=== PATIENT | female | born 2000 | race Caucasian/White ===

== ENCOUNTER → 2022-01-20 13:47 | Outpatient (BNVA) | payer SELFPAY | PROVIDERS: PCP Internal Medicine; Visit Provider Psychiatry & Neurology Neurology | DX: G40.909 Epilepsy, unspecified, not intractable, without status epilepticus (principal); F39 Unspecified mood [affective] disorder | CPT/HCPCS: 99212 ==

== ENCOUNTER → 2023-01-19 12:40 | Outpatient (BNVA) | payer SELFPAY | PROVIDERS: PCP Internal Medicine; Visit Provider Nurse Practitioner Family | DX: G40.909 Epilepsy, unspecified, not intractable, without status epilepticus (principal); F39 Unspecified mood [affective] disorder | CPT/HCPCS: 99212 ==

== ENCOUNTER 2024-05-21 14:33 | Outpatient (AMB) | payer SELFPAY ==
--- NOTE | 2024-05-21 14:33 | MHC.OFFVIS ---
Intake Visit Reasons: 1 yr f/u appt - CONF Intake Note: Pt presents for 4 month follow up for epilepsy via telehealth. [facility] [employer] Required: No Allergies No Known Allergies Allergy (Verified 05/21/24 14:34) Medication List - Last Reconciled 05/21/24 by Brooke Loera MD clonazepam 1 tab as needed for seizure lasting more than 5 min - PO PRN levetiracetam 750 mg PO BID HPI Comments Details: Ese Weinstein is an 24 year old transgender male with PMH of generalized idiopathic epilepsy on Keppra, presenting for seizure follow up. This is a televisit Pt has seizure free for the last 14 years. He is on keppra 750 mg BID, and compliant the medication. He has not use clonazepam. He has been driving without incident. He sleeps well, and mood is stable with Vit B complex. 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 ??? PFSH Medical History Mood disorder Transgender Epilepsy Family History Father TBI (traumatic brain injury) Seizure Brother Seizure Social History Alcohol intake: never Patient Tobacco Use Status: Never used Tobacco Substance Use Type: Marijuana Physical Exam Const Other: Normal speech AAOX3 Mood stable Telehealth Telehealth Telehealth Platform: Telephone Location of provider rendering services: practice address Location of patient: address on file Patient Identification confirmed using: Name, : Yes Telehealth method: voice only Patient verbally consented to treatment: Yes Patient verbally consented to billing insurance company: Yes Patient informed of any privacy concerns related to visit: Yes Minutes spent on Phone/Video with Pt.: 16 Assessment & Plan Assessment & Plan (1) Epilepsy: Code(s): G40.909 - Epilepsy, unspecified, not intractable, without status epilepticus Category: Medical (2) Mood disorder: Code(s): F39 - Unspecified mood [affective] disorder Category: Medical Plan Continue keppra 750mg bid Clonazepam 1mg as needed for seizures compliance stressed Medications: New levetiracetam 750 mg PO BID 180 tabs 6RF Coding Level of Care Code Tele Est Pt Level 4 (62119) Diagnoses Epilepsy G40.909 Mood disorder F39 Time Spent (min) 22
== END 2024-05-21 16:24 | disposition home or self-care (01) ==
LOC: HO.HSMS 14:33
PROVIDERS: PCP Internal Medicine; Visit Provider Psychiatry & Neurology Neurology
DX: G40.909 Epilepsy, unspecified, not intractable, without status epilepticus (principal); F39 Unspecified mood [affective] disorder
CPT/HCPCS: 99214

== ENCOUNTER → 2024-05-21 14:33 | Outpatient (BNVA) | payer SELFPAY | PROVIDERS: PCP Internal Medicine; Visit Provider Psychiatry & Neurology Neurology ==